=== PATIENT | male | born 1950 | race Caucasian/White ===

== ENCOUNTER → 2017-07-07 | Outpatient (CLI) | payer OTHER | LOC: FCPNEURO 23:30 | PROVIDERS: ATTEND Student in an Organized Health Care Education/Training Program | DX: G47.33 Obstructive sleep apnea (adult) (pediatric) (principal); G47.52 REM sleep behavior disorder ==

== ENCOUNTER 2018-05-22 06:09 | Day surgery (SDC) | payer OTHER ==
[2018-05-22] MEDS ORDERED: ASPIRIN EC 325 MG TAB PO ONE ×2 (06:15→06:32)
[2018-05-22] MEDS ORDERED: FAMOTIDINE 20 MG TAB PO ONE (06:15)
[2018-05-22] MEDS ORDERED: DIAZEPAM 5 MG TAB PO ONE (06:15)
[2018-05-22] MEDS ORDERED: NS 1,000 ML IV ONE (06:15)
[2018-05-22] MEDS ORDERED: diphenhydrAMINE 25 MG CAP PO ONE ×2 (06:15→06:32)
[2018-05-22] MEDS ORDERED: DIAZEPAM 5 MG TAB ONE (06:32)
[2018-05-22] MEDS ORDERED: FAMOTIDINE 20 MG TAB ONE (06:32)
[2018-05-22 06:50] LABS: PLATELET COUNT 203 10^3/uL (150-400)
[2018-05-22 06:58] LABS: INR 1.12 (0.83-1.16)
[2018-05-22] MEDS ORDERED: MIDAZOLAM 2 MG/2 ML VIAL ONE (07:13)
[2018-05-22] MEDS ORDERED: fentaNYL 100 MCG/2 ML INJ ONE (07:13)
[2018-05-22] MEDS ORDERED: LIDOCAINE 1% 300 MG/30 ML SDV ONE (07:13)
[2018-05-22] MEDS ORDERED: IOPAMIDOL (ISOVUE-370) 150 ML BTL IV ONE (07:14)
--- NOTE | 2018-05-22 07:22 | PDHPUP ---
History & Physical Update H&P update statement: This history and physical update is based on an assessment of the patient which was completed after admission or registration (within 24 hours), but prior to the surgery/procedure. H&P update: H&P reviewed & patient examined, no change in patient's condition since H&P completed
--- NOTE | 2018-05-22 07:22 | PDPROPOC ---
Sedation Plan of Care Sedation Plan of Care: mental status noted, patient educated of risks, benefits , alternatives, patient can tolerate sedation ASA Classification: ASA 2 Planned drugs: fentanyl, midazolam Mallampati Score: Class 2 Mallampati Reference Image: Patient passed 3-3-2 rule?: Yes
[2018-05-22] MEDS ORDERED: HYDROCODONE/APAP 5/325 TAB PO PRN (07:54)
[2018-05-22] MEDS ORDERED: ONDANSETRON 4 MG/2 ML VIAL IVP PRN (07:54)
[2018-05-22] MEDS ORDERED: NITROGLYCERIN 0.4 MG BTL SL PRN (07:54)
[2018-05-22] MEDS ORDERED: ATROPINE SULFATE 1 MG/10 ML SYR IVP PRN (07:54)
[2018-05-22] MEDS ORDERED: OXYCODONE/APAP 5/325 TAB PO PRN (07:54)
--- NOTE | 2018-05-22 08:27 | CPIP ---
[f rep st] INVASIVE CARDIAC PROCEDURE DATE OF PROCEDURE: 05/22/2018 INDICATIONS FOR PROCEDURE: Preoperative for AVR. PROCEDURE: 1. Nonselective right groin sheathogram. 2. 7-Nauruan sheath in the right common femoral vein. 3. Right heart catheterization with [place] catheter. 4. Bilateral coronary angiography. 5. Right groin closure with a 6-Nauruan Angio-Seal. HISTORY: Briefly, this is a 68-year-old male with history of known severe symptomatic aortic stenosi s. The patient has been evaluated as an outpatient and deemed to be a low risk candidate for open AV R. The patient was consented for right and left heart catheterization in anticipation for open AVR. DESCRIPTION OF PROCEDURE: After informed consent, the patient was brought to [facility] where the right shanna in was prepped and draped in sterile fashion. Using lidocaine, a short 6-Nauruan sheath in the right femoral artery verified angiographically, a 7-Nauruan sheath in the right common femoral vein. [place] catheter was advanced. Wedge pressure was mean of 11, A-wave 14, V-wave 13. PA pressure systoli c 32, diastolic 17, mean of 22. RV pressure systolic 37, diastolic 6, end of 7, RA pressure mean of 7, A-wave 9, V-wave 7. Cardiac output was measured to be 6.4 by Gracie with a cardiac index of 2.9. A O sat was 93%. PA sat was 75%. [place] catheter was then removed. A JL4 catheter was advanced to the left coronary artery. Images of the left coronary artery revealed short left main. Left circum flex artery was small but gave off a marginal 1 artery which was healthy and free of disease. Interm ittent AV groove circ was healthy and free of disease. There was a stent in the proximal LAD which h ad minimal in-stent restenosis. The LAD distal appeared to be widely patent. There was a diagonal a rtery coming off the midbody of the LAD, which was widely patent. After these images were obtained, the JL4 catheter was removed. A JR4 catheter was advanced to the right coronary artery. Images of t he right coronary artery revealed normal ostial RCA. There was 20% to 30% plaque disease in the prox imal RCA. RPD and RPLS appeared to be widely patent and free of disease. At this time, the JR4 cath eter was removed over the 0.035 wire. Right groin was closed with a 6-Nauruan Angio-Seal. The 7-Fren ch sheath was closed with manual pressure. Patient tolerated the procedure well with no complication s. IMPRESSION: 1. Patent stent in the ostial proximal left anterior descending. 2. Normal left circumflex artery. 3. Mild noncritical disease in the proximal right coronary artery. 4. Normal pulmonic pressures. 5. Normal cardiac output. PLAN: The patient will be discharged home this morning. He will follow up in the office with Dr. Manisha Gaytan in 24 hours for discussion of open AVR. /[id number]/MODL
--- NOTE | 2018-05-22 19:39 | CPEKG ---
Test Reason : OPEN Blood Pressure : / mmHG Vent. Rate : 059 BPM Atrial Rate : 059 BPM P-R Int : 239 ms QRS Dur : 085 ms QT Int : 445 ms P-R-T Axes : 017 046 104 degrees QTc Int : 441 ms Sinus rhythm 1 degree av block Nonspecific T abnormalities, lateral leads Confirmed by Patrick Melchor ([id number]) on 05/22/2018 7:38:56 PM Referred By: Vitaliy Chambers Confirmed By:Patrick Melchor
== END 2018-05-22 12:30 | disposition home or self-care (01) ==
LOC: FCATH 06:09
PROVIDERS: ATTEND Internal Medicine Cardiovascular Disease
PROC: B2111ZZ Fluoroscopy of Multiple Coronary Arteries using Low Osmolar Contrast (ICD-10-PCS; principal; 2018-05-22)
PROC: 4A033BC Measurement of Arterial Pressure, Coronary, Percutaneous Approach (ICD-10-PCS; principal; 2018-05-22)
PROC: B2161ZZ Fluoroscopy of Right and Left Heart using Low Osmolar Contrast (ICD-10-PCS; principal; 2018-05-22)
PROC: 4A023N6 Measurement of Cardiac Sampling and Pressure, Right Heart, Percutaneous Approach (ICD-10-PCS; principal; 2018-05-22)
DX: I35.0 Nonrheumatic aortic (valve) stenosis (principal); I25.10 Atherosclerotic heart disease of native coronary artery without angina pectoris; Z95.5 Presence of coronary angioplasty implant and graft; E78.00 Pure hypercholesterolemia, unspecified; I10 Essential (primary) hypertension
CPT/HCPCS: C1760; J1644; J2250; J3010; Q9967

== ENCOUNTER → 2018-05-30 | Outpatient (CLI) | payer OTHER | LOC: FIMAGING 11:08 | PROVIDERS: ATTEND Thoracic Surgery (Cardiothoracic Vascular Surgery) | DX: I35.0 Nonrheumatic aortic (valve) stenosis (principal); K46.9 Unspecified abdominal hernia without obstruction or gangrene ==

== ENCOUNTER 2018-06-03 09:25 | Inpatient (IN) | payer OTHER ==
[~2018-06-03 09:25] MED LIST: ADENOSINE 6 MG/2 ML VIAL ONE; ALBUMIN 5% 250 ML BOTTLE IV ONE; AMINOCAPROIC ACID 5 GM/20 ML VIAL ONE; AMIODARONE HCL 150 MG/3 ML VIAL ONE; CALCIUM CHLORIDE 1 GM/10 ML INJ ONE; CARDIOPLEGIC SOLUTION 1,052.8 ML PF ONE; CITRATE DEXTROSE SOLN 500 ML BAG ONE; DOBUTamine/DEXTROSE 250 ML IV ONE; DOPamine/DEXTROSE 400 MG/250 ML BAG IV ONE; HEPARIN 10,000 UNIT/10 ML MDV (1,000 UNIT/ML) ONE; INSULIN REGULAR HUMAN 100 UNIT in NS 100 ML IV ONE; LIDOCAINE 2% 100 MG/5 ML SYR ONE; MAGNESIUM SULFATE 1 GM/2 ML VIAL ONE; MANNITOL 25% 12.5 GM/50 ML VIAL IVP ONE; MILRINONE/DEXTROSE/100 ML BAG IV ONE; NA BICARBONATE 50 MEQ/50 ML VIAL ONE; NITROGLYCERIN/D5W 50 MG/250 ML BOTTLE IV ONE; NOREPINEPHRINE BITARTRATE 16 MG in NS 250 ML IV ONE; PHENYLEPHRINE HCL 50 MG in NS 250 ML IV ONE; PROTAMINE SULFATE 50 MG/5 ML VIAL IVP ONE; SODIUM BICARBONATE 50 MEQ/50 ML SYR ONE; methylPREDNISolone SOD SUCC 1 GM/8 ML VIAL ONE; niCARdipine/NACL/200 ML BAG IV ONE
[2018-06-03] MEDS ORDERED: CITRATE DEXTROSE SOLN 500 ML BAG MISC ONE (09:35)
[2018-06-03] MEDS ORDERED: AMINOCAPROIC ACID 5 GM/20 ML VIAL IV ONE (09:35)
[2018-06-03] MEDS ORDERED: LIDOCAINE 1% 2 ML INJ ID PRN (09:35)
[2018-06-03] MEDS ORDERED: ceFAZolin 2 GM/DEXTROSE 100 ML IV ONE (09:35)
[2018-06-03] MEDS ORDERED: LR 1,000 ML IV ONE (09:41)
--- NOTE | 2018-06-03 10:01 | PDHPUP ---
History & Physical Update H&P update statement: This history and physical update is based on an assessment of the patient which was completed after admission or registration (within 24 hours), but prior to the surgery/procedure. No changes from previous History and Physical Risks, benefits alternatives have been reviewed with patient and he has agreed to proceed. H&P update: H&P reviewed & patient examined, no change in patient's condition since H&P completed
[2018-06-03] MEDS ORDERED: MIDAZOLAM 2 MG/2 ML VIAL IVP ONE (10:02)
--- NOTE | 2018-06-03 10:02 | PDANEPAE ---
ANE History of Present Illness 68 yo for avr ANE Past Medical History - Cardiovascular History Hx Hypertension: No Hx Arrhythmias: No Hx Chest Pain: No Hx Coronary Artery / Peripheral Vascular Disease: Yes Hx CHF / Valvular Disease: Yes Hx Palpitations: No - Pulmonary History Hx COPD: No Hx Asthma/Reactive Airway Disease: No Hx Recent Upper Respiratory Infection: No Hx Oxygen in Use at Home: No Hx Sleep Apnea: Yes Sleep Apnea Screening Result - Last Documented: Positive Pulmonary History Comment: RUTH RECENTLY STARTED USING C-PAP - Neurologic History Hx Cerebrovascular Accident: No Hx Seizures: No Hx Dementia: No - Endocrine History Hx Diabetes: No - Renal History Hx Renal Disorders: No - Liver History Hx Hepatic Disorders: No - Neurological & Psychiatric Hx Hx Neurological and Psychiatric Disorders: Yes Neurological / Psychiatric History Comment: ADD - Cancer History Hx Cancer: Yes Cancer History Comment: MOH'S NOSE - Congenital Disorder History Hx Congenital Disorders: No - GI History Hx Gastrointestinal Disorders: Yes Gastrointestinal History Comment: HIATAL HERNIA. GERD - Chronic Pain History Chronic Pain: No - Surgical History Prior Surgeries: EGD ANE Review of Systems Review of Systems: - Exercise capacity METS (RN): 4 METS ANE Patient History - Allergies Allergies/Adverse Reactions: Penicillins Allergy (Unknown, Verified 05/16/18 14:36) Family history - Home Medications Home medications: home medication list seen and reviewed Home Medications: Allopurinol [Allopurinol 100 MG (*)] 100 mg PO DAILY 05/16/18 [Last Taken ] Allopurinol [Allopurinol 300 MG (RX)] 300 mg PO DAILY 05/16/18 [Last Taken 05/21] Androgel 1.62% 1 chelle TP DAILY 05/16/18 [Last Taken Unknown] Citalopram Hydrobromide [Citalopram HBr] 20 mg PO DAILY 05/16/18 [Last Taken Unknown] Herbals/Supplements -Info Only 1 ea PO DAILY 05/16/18 [Last Taken 05/21/18] Metoprolol Tartrate [Lopressor 50 mg (*)] 50 mg PO BID 05/16/18 [Last Taken 11/29] Omeprazole 40 mg PO DAILY 05/16/18 [Last Taken 05/21/18] Rosuvastatin Calcium [Crestor 40mg (*)] 40 mg PO DAILY 05/16/18 [Last Taken 11/29] clonazePAM [Klonopin (*)] 0.25 mg PO HS 05/16/18 [Last Taken 05/21/18] valACYclovir [Valtrex (*)] 500 mg PO DAILY 05/16/18 [Last Taken 05/21/18] - NPO status NPO Status: no food or drink >8 hours - Anes Hx Anes Hx: no prior problems - Smoking Hx Smoking Status: Never smoked - Family Anes Hx Family Hx Anesthesia Complications: NONE ANE Labs/Vital Signs - Vital Signs Height: 5 ft 10 in Weight: 99.79 kg ANE Physical Exam - Airway Neck exam: FROM Mallampati Score: Class 2 Mouth exam: normal dental/mouth exam - Pulmonary Pulmonary: no respiratory distress - Cardiovascular Cardiovascular: regular rate and rhythym - ASA Status ASA Status: IV ANE Anesthesia Plan Anesthesia Plan: general endotracheal anesthesia Lines/Monitors: arterial line, central line, JENNIFER
[2018-06-03] MEDS ORDERED: REMIFENTANIL HCL 1 MG VIAL ONE (10:06)
[2018-06-03] MEDS ORDERED: fentaNYL 100 MCG/2 ML INJ ONE (10:06)
[2018-06-03] MEDS ORDERED: PROPOFOL/EMULSION 500 MG/50 ML BOTTLE IV ONE (10:07)
[2018-06-03] MEDS ORDERED: ROCURONIUM 100 MG/10 ML VIAL ONE (10:07)
[2018-06-03] MEDS ORDERED: DEXAMETHASONE 4 MG/ML VIAL ONE (10:07)
[2018-06-03] MEDS ORDERED: MIDAZOLAM 2 MG/2 ML VIAL ONE (10:13)
[2018-06-03] MEDS ORDERED: DEXMEDETOMIDINE HCL 400 MCG in NS 100 ML IV SCH (10:30)
[2018-06-03] MEDS: ceFAZolin 1 GM VIAL ONE ×2 (13:17→13:20)
[2018-06-03] MEDS ORDERED: PROPOFOL 200 MG/20 ML VIAL ONE (13:28)
--- NOTE | 2018-06-03 14:16 | POSTOPPROG ---
Post Op Note Date of Operation: 06/03/18 Surgeon: Brady Doll Assistant: Darling Colindres PA-C Anesthesiologist: Karen Anesthesia: GET(General Endotracheal) Pre-op Diagnosis: severe Post-op Diagnosis: same Procedure: AVR #21 Diaz Intuity Elite bioprosthesis Inf/Abcess present in the surg proc area at time of surgery?: No EBL: n/a Bowel Protocol: N/A Clean Closure Performed: Yes Drains: Other (36 Fr mediastinal and rt pleural chest tubes y-d to pleurovac Percutaneous ventricular wires)
[2018-06-03] MEDS ORDERED: SODIUM CL NASAL 45 ML BTL EACHNARE PRN (14:18)
[2018-06-03] MEDS ORDERED: METOCLOPRAMIDE 10 MG/2 ML VIAL IVP PRN (14:18)
[2018-06-03] MEDS ORDERED: POTASSIUM Cl (KCl) 50 ML IV PRN (14:18)
[2018-06-03] MEDS ORDERED: LACTULOSE 20 GM/30 ML UDCUP PO PRN (14:18)
[2018-06-03] MEDS ORDERED: ACETAMINOPHEN 650 MG SUPP PR PRN (14:18)
[2018-06-03] MEDS ORDERED: ONDANSETRON DISINTEGRATING 4 MG TAB PO PRN (14:18)
[2018-06-03] MEDS ORDERED: fentaNYL 100 MCG/2 ML INJ IVP PRN (14:18)
[2018-06-03] MEDS ORDERED: CEPACOL LOZENGE PO PRN (14:18)
[2018-06-03] MEDS ORDERED: BISACODYL 10 MG SUPP PR PRN (14:18)
[2018-06-03] MEDS ORDERED: D50W 25 GM/50 ML SYR IVP PRN (14:18)
[2018-06-03] MEDS ORDERED: MEPERIDINE 25 MG/0.5 ML AMP IVP PRN (14:18)
[2018-06-03] MEDS ORDERED: ONDANSETRON 4 MG/2 ML VIAL IVP PRN (14:18)
[2018-06-03] MEDS ORDERED: MAGNESIUM HYDROXIDE 30 ML UDCUP PO PRN (14:18)
[2018-06-03] MEDS ORDERED: PANTOPRAZOLE SODIUM 40 MG VIAL IVP ONE (14:18)
[2018-06-03] MEDS ORDERED: niCARdipine/NACL/200 ML BAG IV ONE (14:23)
[2018-06-03] MEDS ORDERED: INSULIN REGULAR HUMAN 100 UNIT in NS 100 ML IV SCH (14:30)
[2018-06-03] MEDS ORDERED: NS 1,000 ML IV SCH (14:30)
--- NOTE | 2018-06-03 14:38 | PDMN ---
Medical Necessity Medical necessity: MCG: S 290 cardiac valve replacement or repair 5 days INPT only OP: AVR --. AUTH#[id number] FOR CPT 57353 INPT
--- NOTE | 2018-06-03 15:07 | PDCONSULT ---
Ict Security Specialist Note: ASSESSMENT 68-year-old male with severe status post bioprosthetic aortic valve repair # severe aortic stenosis status post bioprosthetic valve repair 05/03/2018 # GERD complicated by Hallman's esophagus # gout # obesity # REM sleep behavior disorder # coronary disease status post TIEN to LAD in 1999 # COPD # postoperative respiratory failure. V/Q mismatching with shunt physiology worsened by underlying obesity and lung disease PLAN # lung protective ventilation, as hemodynamics improve will wean to extubate # given underlying RUTH, obesity, and COPD, he is high at risk for respiratory complications # aggressive pulmonary toilet # patients to use home CPAP with bleed in oxygen once extubated # hold gout medication # hold low-dose clonazepam until extubated clinically improved (REM sleep disorder) # Feeding - NPO # ASA 81 # Analgesia APAP, fentanyl # Sedation Precedex # Thromboprophylaxis - SQ hep # Head of bed elevated # Ulcer prophylaxis -PPI for GERD # Glucose SSI # Skin no skin breakdown # Delirium - delirium precautions Patient is critical ill due to life threatening organ dysfunction and is at high risk for decompensation and . Total critical care time, excluding procedures: 55 min cc Shortness of breath HPI As X by Dr. Doll of cardiothoracic surgery to evaluate this patient for ICU care. Estiven is a very pleasant 68-year-old male. Initially presented primary care provider with significant dyspnea on exertion and was found to have severe aortic stenosis initially diagnosed with stress echocardiogram. Due to interval worsening of symptoms he was referred to cardiology and cardiothoracic surgery and deemed eligible for valve repair. He also has obstructive sleep apnea as well as insomnia and REM sleep behavior disorder as father cause sleep apnea is to. Per report he has excellent adherence and improvement with CPAP. Medication A medication Reconciliation was performed see EMR full details Allergies Penicillin Past medical history Severe extent notices, coronary disease, GERD complicated by Hallman's esophagus , insomnia, REM behavior sleep disorder, obesity, obstructive sleep apnea Social history Lives with family in [facility] Family history No history of severe aortic stenosis Review of systems Unable to be obtained secondary to pressures mental status Physical exam Afebrile, sinus 70s, map 75, respirations 16 96% on 60% FiO2 peep of 5 on ventilator GEN: Intubated sedated lying in bed NEURO: Sedated, no focal deficits ET tube in place HEENT: ET tube in place, pupils equal round reactive to light NECK: supple, trachea midline CHEST midline sternotomy scar clean dry and intact mediastinal drains in place CVS: Non tachycardic CVP not elevated PULM: Mechanical breath sounds bilaterally ABD: Protuberant, NT, ND, NABS EXT: no swelling, no cyanosis, full ROM SKIN: warm, dry, intact, no rash PSYCH sedated Labs Reviewed Imaging Reviewed
[2018-06-03 15:14] LABS: INR 1.44 (0.83-1.16); PROTIME(PATIENT) 16.9 SEC (12.0-15.0)
[2018-06-03] MEDS: KETOROLAC 15 MG/1 ML SDV IVP SCH ×2 (15:18→17:22)
[2018-06-03] MEDS: ALBUMIN 5% 250 ML IV PRN ×2 (16:00→17:36)
[2018-06-03] MEDS: MUPIROCIN 2% 22 GM OINT NS SCH ×2 (16:14→20:33)
[2018-06-03] MEDS: ceFAZolin 2 GM/DEXTROSE 100 ML IV SCH (17:35)
[2018-06-03] MEDS: POLYETHYLENE GLYCOL 3350 17 GM PKT PO PRN ×2 (19:24→20:33)
[2018-06-03] MEDS ORDERED: ceFAZolin 2 GM/DEXTROSE 100 ML IV SCH (22:00)
[2018-06-04] MEDS: KETOROLAC 15 MG/1 ML SDV IVP SCH (00:13)
[2018-06-04] MEDS: ACETAMINOPHEN 325 MG TAB PO PRN ×2 (00:56→05:02)
[2018-06-04] MEDS: HYDROCODONE/APAP 5/325 TAB PO PRN ×4 (00:56→15:21)
[2018-06-04] MEDS: ceFAZolin 2 GM/DEXTROSE 100 ML IV SCH ×3 (01:00→17:41)
[2018-06-04 04:20] LABS: PLATELET COUNT 95 10^3/uL (150-400)
[2018-06-04 04:23] LABS: INR 1.43 (0.83-1.16); PROTIME(PATIENT) 16.8 SEC (12.0-15.0)
--- NOTE | 2018-06-04 07:15 | SOAPPROG ---
CALE Progress Note Assessment/Plan: POD #1: AVR with #21 Diaz Intuity Elite bioprosthesis Severe s/p AVR with bioprosthesis - Plan for AL/Pal[place]/FC to be removed - CTs/pacing wires to remain - Thromboprophylaxis with Coumadin, INR goal 2-3, duration 2 months - will start as per Dr. Manisha Gaytan, likely when tubes and wires are out - Beta-dave for secondary prevention - ASA for Thromboprophylaxis Acute post-op blood loss anemia - Stable without the need for transfusions DVT prophylaxis - SCDs Disposition - Likely PCU later today Subjective: Pain well-controlled. Denies SOB. Objective: Vital Signs Temp Pulse Resp BP Pulse Ox 36.6 C 63 20 122/60 H 93 06/04/18 06:00 06/04/18 07:00 06/04/18 07:00 06/04/18 07:00 06/04/18 07:00 Laboratory Results 06/04/18 04:00 06/04/18 04:00 06/03/18 06/04/18 06/05/18 05:59 05:59 05:59 Intake Total 3323 Output Total 1540 Balance 1783 PT 16.8 SEC (12.0-15.0) H 06/04/18 04:00 INR 1.43 (0.83-1.16) H 06/04/18 04:00 Physical Exam - Physical Exam General Appearance: WD/WN, alert, no apparent distress EENT: No scleral icterus (R), No scleral icterus (L) Neck: normal inspection Respiratory: No respiratory distress Cardiac/Chest: regular rate, rhythm Abdomen: non-tender, soft, No distended Skin: normal color, warm/dry Extremities: No pedal edema Neuro/Psych: no motor/sensory deficits, alert, normal mood/affect, oriented x 3 ICD10 Worksheet Patient Problems: Problems Problem Status Onset S/P aortic valve replacement with bioprosthetic valve Acute ~06/03/18 Severe aortic valve stenosis Acute RUTH on CPAP Chronic Obesity (BMI 30.0-34.9) Chronic
[2018-06-04] MEDS: CITALOPRAM 20 MG TAB PO SCH (09:05)
[2018-06-04] MEDS: PANTOPRAZOLE SODIUM 40 MG TAB PO SCH (09:05)
[2018-06-04] MEDS: ASPIRIN 81 MG CHEWABLE TAB PO SCH (09:05)
[2018-06-04] MEDS: valACYclovir 500 MG TAB PO SCH (09:05)
[2018-06-04] MEDS: MUPIROCIN 2% 22 GM OINT NS SCH ×2 (09:15→20:20)
[2018-06-04] MEDS ORDERED: OXYCODONE/APAP 5/325 TAB PO PRN (09:41)
--- NOTE | 2018-06-04 13:54 | PDINTPN ---
Staff Occupational Therapist Progress Note Assessment/Plan: ASSESSMENT 68-year-old male with severe status post bioprosthetic aortic valve repair # severe aortic stenosis status post bioprosthetic valve repair 05/03/2018 # GERD complicated by Hallman's esophagus # RUTH dependent on CPAP # gout # obesity # REM sleep behavior disorder # coronary disease status post TIEN to LAD in 1999 # COPD # postoperative respiratory failure. V/Q mismatching with shunt physiology worsened by underlying obesity and lung disease. improving PLAN # aggressive pulmonary toilet # wean supple oxygen as tolerated # given underlying RUTH, obesity, and COPD, he is higher at risk for respiratory complications # patients to use home CPAP with bleed in oxygen # hold low-dose clonazepam until clinically improved (REM sleep disorder) # Feeding -cardiac diet # ASA 81 # Analgesia APAP, Oxy # Sedation none # Thromboprophylaxis - Coumadin initiated # Head of bed elevated # Ulcer prophylaxis -PPI for GERD # Glucose SSI # Skin no skin breakdown # Delirium - delirium precautions # agree with downgrading to PCU Subjective: Extubated without difficulty, mild chest pain but doing well. Did not use CPAP overnight and states he had unrefreshing sleep. Weaned off pressors. Plans for support devices to be removed. No nausea, vomiting still with some supplemental oxygen requirement Objective: Vital Signs Temp Pulse Resp BP Pulse Ox 36.4 C 76 20 112/52 L 92 06/04/18 08:00 06/04/18 10:00 06/04/18 10:00 06/04/18 10:00 06/04/18 10:00 Laboratory Results 06/04/18 04:00 06/04/18 04:00 06/03/18 06/04/18 06/05/18 05:59 05:59 05:59 Intake Total 3323 Output Total 1540 300 Balance 1783 -300 PT 16.8 SEC (12.0-15.0) H 06/04/18 04:00 INR 1.43 (0.83-1.16) H 06/04/18 04:00 Physical Exam - Physical Exam General Appearance: alert, no apparent distress EENT: PERRL/EOMI, normal ENT inspection Neck: non-tender, full range of motion, other (Right IJ Cordis with Minerva in place) Respiratory: lungs clear, normal breath sounds, No respiratory distress Cardiac/Chest: normal peripheral pulses, regular rate, rhythm, other (Midline sternotomy bandage clean dry and intact mediastinal drains in place) Abdomen: normal bowel sounds, non-tender, soft Skin: normal color, warm/dry Neuro/Psych: no motor/sensory deficits, alert, normal mood/affect, oriented x 3 ICD10 Worksheet Patient Problems: Problems Problem Status Onset S/P aortic valve replacement with bioprosthetic valve Acute ~06/03/18 Severe aortic valve stenosis Acute RUTH on CPAP Chronic Obesity (BMI 30.0-34.9) Chronic
[2018-06-04] MEDS ORDERED: ASPIRIN 81 MG CHEWABLE TAB TUBE PRN (14:18)
[2018-06-04] MEDS: METOPROLOL TARTRATE 25 MG TAB PO SCH (20:17)
[2018-06-04] MEDS: clonazePAM 0.5 MG TAB PO SCH (20:19)
[2018-06-04] MEDS: oxyCODONE IR 5 MG TAB PO PRN (22:02)
[2018-06-05] MEDS: ceFAZolin 2 GM/DEXTROSE 100 ML IV SCH (01:44)
[2018-06-05] MEDS: oxyCODONE IR 5 MG TAB PO PRN ×3 (05:06→20:07)
[2018-06-05 05:23] LABS: INR 1.26 (0.83-1.16); PROTIME(PATIENT) 15.3 SEC (12.0-15.0)
--- NOTE | 2018-06-05 08:01 | SOAPPROG ---
SOAP Progress Note Assessment/Plan: Assessment: POD#2 AVR with #21 Diaz Intuity Elite bioprosthesis Severe - s/p rapid deployment tissue AVR. CTs out. Antithrombotic prophylaxis with Coumadin x 2 months, target INR 2.3. AF prophylaxis with BB as tolerated. Postoperative atrial fibrillation - Onset this am. No RVR or hypotension. Amio started. Adjunctive BB as allowed by BP. Antithrombotic prophylaxis as per AVR. Acute expected blood loss anemia - Stable. No transfusions needed. VTE prophylaxis with SCDs and coumadin. Plan: Cont metoprolol tartrate 12.5 mg BID. IV amio as per protocol. 150 mg bolus prn sustained HR > 120. Start diuresis. Start coumadin. Intensify pulm toilet. Inc activity as tolerated. Dispo - Anticipate home without services next 2-3 days. 06/05/18 07:57 Subjective: Doing ok. Aware of irreg HR. No malaise or dyspnea. Improving appetite and mobility. Feels puffy. Objective: Vital Signs Temp Pulse Resp BP Pulse Ox 36.7 C 83 20 114/65 89 L 06/05/18 07:50 06/05/18 07:50 06/05/18 07:50 06/05/18 07:50 06/05/18 07:50 Laboratory Results 06/05/18 04:45 06/05/18 04:45 06/04/18 06/05/18 06/06/18 05:59 05:59 05:59 Intake Total 3323 1035 Output Total 1540 1425 Balance 1783 -390 PT 15.3 SEC (12.0-15.0) H 06/05/18 04:45 INR 1.26 (0.83-1.16) H 06/05/18 04:45 Onset of AF 90s this am. SBP > 100. 4 lpm suppl O2 req. 8 kg positive fluid balance. Renal fx ok. INR near normal. Platelets back over 100. Physical Exam - Physical Exam General Appearance: alert, no apparent distress Respiratory: decreased breath sounds (bases), other (chest tube dressings CDI) Cardiac/Chest: irregularly irregular, other (Vwires intact) Abdomen: non-tender, soft Skin: warm/dry (anteriorly) Extremities: swelling (1+ gen) ICD10 Worksheet Patient Problems: Problems Problem Status Onset S/P aortic valve replacement with bioprosthetic valve Acute ~06/03/18 Severe aortic valve stenosis Acute RUTH on CPAP Chronic Obesity (BMI 30.0-34.9) Chronic
[2018-06-05] MEDS: FUROSEMIDE 40 MG TAB PO SCH (08:35)
[2018-06-05] MEDS: HYDROCODONE/APAP 5/325 TAB PO PRN ×2 (08:35→15:41)
[2018-06-05] MEDS: POTASSIUM CL 20 MEQ TAB PO SCH (08:36)
[2018-06-05] MEDS ORDERED: AMIODARONE HCL 100 ML IV PRN (08:57)
[2018-06-05] MEDS ORDERED: AMIODARONE HCL 200 ML IV ONE (08:57)
[2018-06-05] MEDS: SENNOSIDES/DOCUSATE SODIUM TAB PO SCH ×2 (10:02→20:07)
[2018-06-05] MEDS: valACYclovir 500 MG TAB PO SCH (10:02)
[2018-06-05] MEDS: ASPIRIN 81 MG CHEWABLE TAB PO SCH (10:02)
[2018-06-05] MEDS: ALLOPURINOL 100 MG TAB PO SCH (10:02)
[2018-06-05] MEDS: CITALOPRAM 20 MG TAB PO SCH (10:03)
[2018-06-05] MEDS: PANTOPRAZOLE SODIUM 40 MG TAB PO SCH (10:03)
[2018-06-05] MEDS: METOPROLOL TARTRATE 25 MG TAB PO SCH ×2 (10:03→20:08)
[2018-06-05] MEDS: ALLOPURINOL 300 MG TAB PO SCH (10:03)
--- NOTE | 2018-06-05 11:40 | GOP ---
[f rep st] OPERATIVE REPORT DATE OF OPERATION: 06/03/2018 SURGEON: Brady Doll MD PALLIATIVE CARE COORDINATOR: ROSEANNA Johns PREOPERATIVE DIAGNOSIS: Severe symptomatic aortic stenosis. POSTOPERATIVE DIAGNOSIS: Severe symptomatic aortic stenosis. PROCEDURE PERFORMED: Aortic valve replacement using a 21 mm Diaz Intuity bioprosthesis. FINDINGS: INDICATIONS: This gentleman has been experiencing increasing dyspnea and fatigue. He was found to h ave severe aortic stenosis. He is a low risk patient. He is recommended to undergo surgical valve r eplacement. DESCRIPTION OF PROCEDURE: Patient was taken to the operating room, placed on the operating table in supine position. After induction of general anesthesia and single-lumen endotracheal tube intubation , patient was prepped and draped sterilely. Standard median sternotomy performed and the patient was fully heparinized. He was cannulated with a Sarns 8.0 soft flow aortic cannula, as well as a dual stage venous right atrial cannula. Cardiopulm onary bypass was instituted. The cross-clamp was applied and the heart was arrested with 1 L of [place] solution. The aorta was opened. Tricuspid calcified valve was encountered. It was resected. The anulus was m eticulously debrided and it was sized to a 21 mm valve. The sutures were then placed at the sol of each of the leaflets and through the sewing ring of the Intuity valve. The valve was seated without difficulty and the balloon was expanded. The sutures were then secured in place with the Cor-knot d evice and the aorta was closed in 2 layers. The cross-clamp was removed and mediastinal and right pl eural chest tubes were placed, as well as 2 ventricular pacing wires. The patient was from bypass without difficulty and the post-pump transesophageal echo shows normally functioning bioprosthetic valve in aortic position, as well as preservation of left ventric ular function. Protamine was administered and the patient was decannulated. All the cannulation sit es were doubly secured with Prolene suture, and after hemostasis had been achieved, the heart was cov ered with pericardium and fat. The chest was closed with #6 stainless steel wire. The subcutaneous tissue and skin were closed with running Vicryl suture. The patient tolerated the procedure well. /[id number]/MODL
[2018-06-05] MEDS: MUPIROCIN 2% 22 GM OINT NS SCH ×2 (11:55→20:12)
--- NOTE | 2018-06-05 15:10 | ASMTCMCOM ---
CM Note CM Note Notes: 06/05/2018 Case Management Note Discussed with Darling Colindres after pt transferred from ICU to PCU. Post op day 2. Anticipating d/c in 2-3 days. Therapies recommending home. Pt has supportive family. Case Management d/c poc: Home with cardiac outpatient rehab. Case Management available if needs change. Date Signed: 06/05/2018 03:09 PM Electronically Signed By:Jenna Dumas RN
[2018-06-05] MEDS: WARFARIN SODIUM 5 MG TAB PO SCH (15:41)
[2018-06-05] MEDS ORDERED: AMIODARONE HCL 540 MG in D5W 300 ML IV ONE (16:00)
[2018-06-05] MEDS: clonazePAM 0.5 MG TAB PO SCH (20:09)
[2018-06-06] MEDS: HYDROCODONE/APAP 5/325 TAB PO PRN ×3 (00:49→17:12)
[2018-06-06] MEDS: oxyCODONE IR 5 MG TAB PO PRN ×4 (05:47→20:05)
[2018-06-06 06:06] LABS: INR 1.59 (0.83-1.16); PROTIME(PATIENT) 18.2 SEC (12.0-15.0)
--- NOTE | 2018-06-06 08:13 | SOAPPROG ---
SOAP Progress Note Assessment/Plan: Assessment: POD#3 AVR with #21 Diaz Intuity Elite bioprosthesis Severe - s/p rapid deployment tissue AVR. CTs out. Antithrombotic prophylaxis with Coumadin x 2 months, target INR 2.3. AF prophylaxis with BB as tolerated. Postoperative paroxysmal atrial fibrillation/flutter - Initial episode POD#2, promptly responsive to amio. No RVR or hypotension. Recurrent PAF with CVR since yest afternoon. Sufficient BP to inc BB. Antithrombotic prophylaxis as per AVR. Acute expected blood loss anemia - Stable. No transfusions needed. VTE prophylaxis with SCDs and coumadin. Plan: Inc metoprolol tartrate to 25 mg BID. [place] amio for recurrent/persistent RVR. Cont coumadin 5 mg daily. Intensify diuresis. Intensify pulm toilet. Consider removal Vwires later today. Baseline postop echo today. Dispo - Anticipate home without services next 1-2 days. 06/06/18 08:12 Subjective: Feels well. Improving mobility. Not much stamina or appetite. Looking forward to a shower. Objective: Vital Signs Temp Pulse Resp BP Pulse Ox 36.7 C 72 18 121/75 H 92 06/06/18 07:04 06/06/18 07:04 06/06/18 07:04 06/06/18 07:04 06/06/18 07:04 Laboratory Results 06/05/18 04:45 06/06/18 05:40 06/05/18 06/06/18 06/07/18 05:59 05:59 05:59 Intake Total 1035 1305 Output Total 1425 1250 Balance -390 55 PT 18.2 SEC (12.0-15.0) H 06/06/18 05:40 INR 1.59 (0.83-1.16) H 06/06/18 05:40 Intermittent PAF, mostly SR SBPs > 110 4 Lpm suppl O2 req. CXR-> mild pulm vasc congestion, small bilat pl eff with bibasilar atelectasis Balanced I/Os. +7 kg overall. Appropriate rise in INR. - Pending Discharge Pending Discharge Within 48 Hours: Yes Pending Discharge Date: 06/08/18 Pending Discharge Time: 11:00 Physical Exam - Physical Exam General Appearance: alert, no apparent distress Respiratory: decreased breath sounds (bases), other (chest tube dressings CDI) Cardiac/Chest: regular rate, rhythm, other (Sternotomy CDI. Vwire intact.) Abdomen: non-tender, soft Skin: warm/dry Extremities: swelling (1+ gen) ICD10 Worksheet Patient Problems: Problems Problem Status Onset S/P aortic valve replacement with bioprosthetic valve Acute ~06/03/18 Severe aortic valve stenosis Acute RUTH on CPAP Chronic Obesity (BMI 30.0-34.9) Chronic
[2018-06-06] MEDS: CITALOPRAM 20 MG TAB PO SCH (08:48)
[2018-06-06] MEDS: ALLOPURINOL 100 MG TAB PO SCH (08:48)
[2018-06-06] MEDS: SENNOSIDES/DOCUSATE SODIUM TAB PO SCH ×2 (08:48→20:07)
[2018-06-06] MEDS: FUROSEMIDE 40 MG TAB PO SCH ×2 (08:48→15:49)
[2018-06-06] MEDS: ALLOPURINOL 300 MG TAB PO SCH (08:48)
[2018-06-06] MEDS: ASPIRIN 81 MG CHEWABLE TAB PO SCH (08:48)
[2018-06-06] MEDS: PANTOPRAZOLE SODIUM 40 MG TAB PO SCH (08:48)
[2018-06-06] MEDS: valACYclovir 500 MG TAB PO SCH (08:48)
[2018-06-06] MEDS: POTASSIUM CL 20 MEQ TAB PO SCH ×3 (08:49→20:06)
[2018-06-06] MEDS: METOPROLOL TARTRATE 25 MG TAB PO SCH ×2 (08:49→20:07)
[2018-06-06] MEDS ORDERED: AMIODARONE HCL 200 MG TAB PO SCH (09:00)
[2018-06-06] MEDS: WARFARIN SODIUM 5 MG TAB PO SCH (15:48)
--- NOTE | 2018-06-06 16:18 | ECHO ---
[email or web address] [address] Main: [phone] Echocardiography Examination Transthoracic Name: PHILIP YOUNG MR#: [id number] Study Date: 06/06/2018 Study Time: 08:22 AM Date of : 1950 Age: 68 year(s) Height: 177.8 cm (70 in.) Weight: 107.96 kg (238 lb.) BSA: 2.25 m2 Gender: Male Examination: Echo Contrast: Image Quality: Technically Difficult Rhythm: Heart Rate: BP: 121 mmHg/75 mmHg Indication: baseline post op echo, s/p AVR #21 Diaz Intuity bioprosthesis Procedure Staff Referring Physician: Machine Adjuster Leader: Birgit Rangel RDCS Reading Physician: Bhumika Valadez MD Requesting Provider: Ordering Physician: Darling Colindres Indication: baseline post op echo, s/p AVR #21 Diaz Intuity bioprosthesis Measurements Chambers AV/MV Label Value Normal Value Label Value Normal Value LVOTd 1.6 cm (1.9cm - 2.1cm) AV PGmax 38 mmHg LVOT VTI 23.2 cm (18cm - 22cm) AV PGmean 22 mmHg LVDd, 2D 4.2 cm (4.2cm - 5.9cm) AV Vmax 3.08 m/s LVDs, 2D 2.7 cm (2.1cm - 4cm) SADIE (VTI) 0.9 cm2 IVSd, 2D 1.2 cm (0.6cm - 1.1cm) MV E Vmax 1.57 m/s LVPWd, 2D 1.2 cm (0.6cm - 1cm) MV DT 176 ms LVEF, 2D 64 % (54% - 74%) MV PHT 0.06 s LVOT PGmean 2 mmHg MVA PHT 3.7 cm2 LVOT Vmean 0.73 m/s MV PHT 60 ms RVDd, 2D 3.3 cm (1.9cm - 3.8cm) TV/PV LADs, 2D 4.4 cm (3cm - 4cm) Label Value Normal Value RA Area 20.5 cm2 RA Pressure 5 mmHg Additional Vessels RVSP 49 mmHg Label Value Normal Value TR Pmax 44 mmHg AoAsc 2.5 cm TR Vmax 3.3 m/s AoRoot, 2D 2.5 cm (1.4cm - 2.6cm) PV PGmax 7 mmHg PV Vmax, Caliper 1.29 m/s (0.6m/s - 0.9m/s) Patient: PHILIP YOUNG Study Date: 06/06/2018 Page 1 of 2 08:22 AM Conclusions 1. Normal LV size and systolic function. Ejection fraction is 60-65%. Mild concentric LVH. Normal wall motion. 2. The right ventricle is normal in size and systolic function. 3. The left atrium is severely dilated. The right atrium is mildly dilated 4. Mild mitral regurgitation. 5. The aortic valve is a well-seated bioprosthesis. Mean gradient across the valve is 22 mm of mercury which is slightly elevated. No prosthesis regurgitation. 6. mild tricuspid regurgitation with estimated PA systolic pressure 49 mm of mercury. 7. Compared with previous study (JENNIFER 06/03/2018), aortic valve has been replaced Findings Left Ventricle: Left ventricle is normal in size. Normal global systolic left ventricular function. EF range is estimated at 60 % - 65 %. There is mild concentric left ventricular hypertrophy. There are no regional wall motion abnormalities. Unable to assess Diastolic Dysfunction due to mitral valve or annular interference. Right Ventricle: Normal size right ventricle. Right ventricular systolic function is normal. Left Atrium: The left atrium is severely dilated. Right Atrium: The right atrium is mildly dilated. Mitral Valve: Mitral valve appears structurally normal. Mild mitral regurgitation. No mitral valve stenosis. There is mitral annular calcification. Aortic Valve: The aortic valve is a bioprosthesis. The prosthetic aortic valve is normal. The orifice motion of the prosthetic aortic valve is normal. No prosthesis regurgitation. Aortic Valve Measurements AV PGmean is 22 mmHg. Tricuspid Valve: Tricuspid valve leaflets are structurally normal. Right Ventricular systolic pressure is measured at 49 mmHg. Pulmonary artery pressure moderately increased. Pulmonic Valve: Pulmonic leaflets are structurally normal. No significant pulmonic valve regurgitation is evident. Aorta: The aortic root size in 2D measures 2.5 cm. The ascending aorta measures 2.5 cm. Aorta Measurements AoRoot, 2D is 2.5 cm. Pericardium: A trivial pericardial effusion was identified. Exam Details Procedure Ordered: Echo Procedure Status: Routine study Image Quality: Technically Difficult Facility Location: Bedside (No Signature Object) Patient: PHILIP YOUNG Study Date: 06/06/2018 Page 2 of 2 08:22 AM [id number]
[2018-06-06] MEDS: clonazePAM 0.5 MG TAB PO SCH (20:28)
[2018-06-07] MEDS: oxyCODONE IR 5 MG TAB PO PRN ×3 (00:05→19:19)
[2018-06-07 06:46] LABS: INR 2.38 (0.83-1.16); PROTIME(PATIENT) 24.8 SEC (12.0-15.0)
[2018-06-07] MEDS: HYDROCODONE/APAP 5/325 TAB PO PRN ×2 (09:43→15:08)
[2018-06-07] MEDS: FUROSEMIDE 40 MG TAB PO SCH ×2 (09:45→15:08)
[2018-06-07] MEDS: PANTOPRAZOLE SODIUM 40 MG TAB PO SCH (09:46)
[2018-06-07] MEDS: SENNOSIDES/DOCUSATE SODIUM TAB PO SCH ×2 (09:46→20:50)
[2018-06-07] MEDS: METOPROLOL TARTRATE 25 MG TAB PO SCH ×2 (09:46→19:19)
[2018-06-07] MEDS: valACYclovir 500 MG TAB PO SCH (09:46)
[2018-06-07] MEDS: CITALOPRAM 20 MG TAB PO SCH (09:46)
[2018-06-07] MEDS: ALLOPURINOL 100 MG TAB PO SCH (09:46)
[2018-06-07] MEDS: ASPIRIN 81 MG CHEWABLE TAB PO SCH (09:46)
[2018-06-07] MEDS: ALLOPURINOL 300 MG TAB PO SCH (09:46)
[2018-06-07] MEDS: POTASSIUM CL 20 MEQ TAB PO SCH ×2 (09:47→20:51)
[2018-06-07] MEDS ORDERED: POTASSIUM CL 20 MEQ TAB PO ONE (10:45)
[2018-06-07] MEDS: POLYETHYLENE GLYCOL 3350 17 GM PKT PO PRN (13:07)
--- NOTE | 2018-06-07 13:43 | SOAPPROG ---
SOAP Progress Note Assessment/Plan: POD#4 AVR with #21 Diaz Intuity Elite bioprosthesis Severe - s/p rapid deployment tissue AVR. CTs out. Antithrombotic prophylaxis with Coumadin x 2 months, target INR 2.3. AF prophylaxis with BB as tolerated. Baseline postop echo performed yesterday showed EF 60-65%, mild MR, well seated AV with mean grad 22, no AI, mild TR, PASP 49mmHg. Postoperative paroxysmal atrial fibrillation/flutter - Initial episode POD#2, promptly responsive to amio. No RVR or hypotension. Recurrent PAF with CVR lasp pm, however currently in SR. On Metoprolol 25mg po BID. Antithrombotic prophylaxis as per AVR. Acute expected blood loss anemia - Stable. No transfusions needed. VTE prophylaxis with SCDs and coumadin. Plan: [place] amio for recurrent/persistent RVR. Cont coumadin 5 mg daily. Continue to diurese. Still no BM. Continue bowel protocol. Dispo - Anticipate home without services next 1-2 days. Subjective: Patient reports good pain control however still no BM. Amenable to suppository tomorrow if still no BM. Objective: Vital Signs Temp Pulse Resp BP Pulse Ox 36.6 C 84 10 L 155/96 H 97 06/07/18 11:03 06/07/18 11:03 06/07/18 11:03 06/07/18 11:03 06/07/18 11:03 Laboratory Results 06/07/18 06:20 06/07/18 06:20 06/06/18 06/07/18 06/08/18 05:59 05:59 05:59 Intake Total 1305 2510 Output Total 1250 2230 350 Balance 55 280 -350 PT 24.8 SEC (12.0-15.0) H 06/07/18 06:20 INR 2.38 (0.83-1.16) H 06/07/18 06:20 Physical Exam - Physical Exam General Appearance: WD/WN, alert, no apparent distress Neck: supple Respiratory: lungs clear, normal breath sounds, decreased breath sounds (bases) , other (No wheezing, rhonchi. ) Cardiac/Chest: regular rate, rhythm, other (+soft murmur. No rubs. Sternum stable, sternotomy c/d/i. ) Abdomen: normal bowel sounds, non-tender, soft Skin: normal color, warm/dry Extremities: other (Warm, +lower extremity edema. ) Neuro/Psych: alert, normal mood/affect, oriented x 3 ICD10 Worksheet Patient Problems: Problems Problem Status Onset Postoperative atrial fibrillation Acute S/P aortic valve replacement with bioprosthetic valve Acute ~06/03/18 Severe aortic valve stenosis Acute RUTH on CPAP Chronic Obesity (BMI 30.0-34.9) Chronic
[2018-06-07] MEDS: WARFARIN SODIUM 5 MG TAB PO SCH (15:08)
[2018-06-07] MEDS: clonazePAM 0.5 MG TAB PO SCH (20:51)
[2018-06-07] MEDS ORDERED: AMIODARONE HCL 100 ML IV ONE (21:30)
[2018-06-08] MEDS: HYDROCODONE/APAP 5/325 TAB PO PRN ×4 (00:11→20:08)
[2018-06-08 06:06] LABS: INR 2.23 (0.83-1.16); PROTIME(PATIENT) 23.6 SEC (12.0-15.0)
--- NOTE | 2018-06-08 08:35 | SOAPPROG ---
SOAP Progress Note Assessment/Plan: POD#5 AVR with #21 Diaz Intuity Elite bioprosthesis Severe - s/p rapid deployment tissue AVR. CTs out. Antithrombotic prophylaxis with Coumadin x 2 months, target INR 2.3. AF prophylaxis with Metoprolol. Baseline postop echo performed yesterday showed EF 60-65%, mild MR , well seated AV with mean grad 22, no AI, mild TR, PASP 49mmHg. Postoperative paroxysmal atrial fibrillation/flutter - Initial episode POD#2 and now in and out of Afib overnight and this am. Will initiate Amiodarone 200mg po BID. On Metoprolol 25mg po BID. Antithrombotic prophylaxis as per AVR. RUTH (uses CPAP at home)- Currently only on 3LNC. Patient's home CPAP machine is in room. Will resume CPAP at night. Acute expected blood loss anemia - Stable. No transfusions needed. VTE prophylaxis with SCDs and Coumadin. Plan: Start Amiodarone 200mg po BID. Cont Coumadin 5 mg daily. Continue to diurese. Anticipate home without services tomorrow. Subjective: Patient reports good pain control. No complaints, however patient is worried that walking causes him to go into Afib. Objective: Vital Signs Temp Pulse Resp BP Pulse Ox 36.6 C 86 19 117/81 H 95 06/08/18 07:18 06/08/18 07:18 06/08/18 07:18 06/08/18 07:18 06/08/18 07:18 Laboratory Results 06/07/18 06:20 06/08/18 05:26 06/07/18 06/08/18 06/09/18 05:59 05:59 05:59 Intake Total 2510 2280 Output Total 2230 2450 Balance 280 -170 PT 23.6 SEC (12.0-15.0) H 06/08/18 05:26 INR 2.23 (0.83-1.16) H 06/08/18 05:26 Physical Exam - Physical Exam General Appearance: WD/WN, alert, no apparent distress Neck: supple Respiratory: lungs clear, normal breath sounds, other (No wheezing, rhonchi. ) Cardiac/Chest: irregularly irregular, other (+ Soft murmur. No rubs. Sternum stable. Sternotomy c/d/i. ) Abdomen: normal bowel sounds, non-tender, soft Skin: normal color, warm/dry Extremities: other (Warm, minimal lower extremity edema. ) Neuro/Psych: alert, normal mood/affect, oriented x 3 ICD10 Worksheet Patient Problems: Problems Problem Status Onset Postoperative atrial fibrillation Acute S/P aortic valve replacement with bioprosthetic valve Acute ~06/03/18 Severe aortic valve stenosis Acute RUTH on CPAP Chronic Obesity (BMI 30.0-34.9) Chronic
[2018-06-08] MEDS: FUROSEMIDE 40 MG TAB PO SCH ×2 (08:50→15:57)
[2018-06-08] MEDS: CITALOPRAM 20 MG TAB PO SCH (08:50)
[2018-06-08] MEDS: ALLOPURINOL 100 MG TAB PO SCH (08:51)
[2018-06-08] MEDS: METOPROLOL TARTRATE 25 MG TAB PO SCH ×2 (08:51→20:07)
[2018-06-08] MEDS: POTASSIUM CL 20 MEQ TAB PO SCH ×2 (08:51→20:07)
[2018-06-08] MEDS: valACYclovir 500 MG TAB PO SCH (08:51)
[2018-06-08] MEDS: ALLOPURINOL 300 MG TAB PO SCH (08:51)
[2018-06-08] MEDS: PANTOPRAZOLE SODIUM 40 MG TAB PO SCH (08:51)
[2018-06-08] MEDS: ASPIRIN 81 MG CHEWABLE TAB PO SCH (08:51)
[2018-06-08] MEDS ORDERED: BISACODYL 10 MG SUPP PR SCH (09:00)
[2018-06-08] MEDS: SENNOSIDES/DOCUSATE SODIUM TAB PO SCH ×2 (10:27→20:04)
[2018-06-08] MEDS: POLYETHYLENE GLYCOL 3350 17 GM PKT PO PRN (10:27)
--- NOTE | 2018-06-08 12:24 | ASMTCMCOM ---
CM Note CM Note Notes: Reviewed chart regarding discharge plan of care, pt's progress. Pt is POD #5. Per MD notes, still no BM since surgery - continuing bowel protocol; also continuing diuresis and management of postop afib/aflutter. Pt to likely discharge home independently with family support and outpatient cardiac rehab in 1-2 days. PT/OT have cleared pt for discharge to outpatient rehab. PT recommends home with a front-wheeled walker. CM will continue to follow for any potential needs. Discharge Plan: Home independent with family support Date Signed: 06/08/2018 12:23 PM Electronically Signed By:Kalie Decker RN
[2018-06-08] MEDS: WARFARIN SODIUM 5 MG TAB PO SCH (15:57)
[2018-06-08] MEDS: AMIODARONE HCL 200 MG TAB PO SCH (20:07)
[2018-06-08] MEDS: clonazePAM 0.5 MG TAB PO SCH (20:08)
[2018-06-09] MEDS: HYDROCODONE/APAP 5/325 TAB PO PRN (03:43)
[2018-06-09 04:46] LABS: INR 2.13 (0.83-1.16); PROTIME(PATIENT) 22.8 SEC (12.0-15.0)
--- NOTE | 2018-06-09 07:16 | SOAPPROG ---
SOAP Progress Note Assessment/Plan: POD #6: AVR with #21 Diaz Intuity Elite bioprosthesis Severe s/p AVR with bioprosthesis - Thromboprophylaxis with Coumadin, INR goal 2-3, duration 2 months - Beta-dave for secondary prevention - ASA for Thromboprophylaxis Acute post-op blood loss anemia - Stable without the need for transfusions Postoperative paroxysmal atrial fibrillation/flutter - Currently in rate controlled AF - Continue amiodarone/metoprolol - Antithrombotic prophylaxis as per AVR. DVT prophylaxis - SCDs Disposition - Home today Subjective: Denies pain/SOB. Ready to head home. Objective: Vital Signs Temp Pulse Resp BP Pulse Ox 36.5 C 75 20 131/81 H 92 06/09/18 03:33 06/09/18 03:33 06/09/18 03:33 06/09/18 03:33 06/09/18 03:33 Laboratory Results 06/07/18 06:20 06/09/18 04:00 06/08/18 06/09/18 06/10/18 05:59 05:59 05:59 Intake Total 2280 1225 Output Total 2450 1000 Balance -170 225 PT 22.8 SEC (12.0-15.0) H 06/09/18 04:00 INR 2.13 (0.83-1.16) H 06/09/18 04:00 Physical Exam - Physical Exam General Appearance: WD/WN, alert, no apparent distress EENT: No scleral icterus (R), No scleral icterus (L) Neck: normal inspection Respiratory: No respiratory distress Cardiac/Chest: regular rate, rhythm, irregularly irregular Abdomen: non-tender, soft, No distended Skin: normal color, warm/dry ICD10 Worksheet Patient Problems: Problems Problem Status Onset Postoperative atrial fibrillation Acute S/P aortic valve replacement with bioprosthetic valve Acute ~06/03/18 Severe aortic valve stenosis Acute RUTH on CPAP Chronic Obesity (BMI 30.0-34.9) Chronic
--- NOTE | 2018-06-09 07:18 | PDHOMEO2F ---
Home Oxygen Face to Face Home Orders: I certify that a physician or a nurse practitioner or physician's administrative assistant data entry has had a [id number] encounter with this patient on the date of this order due to the diagnosis listed, which relates to the primary reason the patient requires home oxygen. Alternative treatments have been tried, or considered, and deemed ineffective. It is anticipated that supplemental oxygen will result in improvement with treatment. Home oxygen qualifying diagnosis: hypoxemia, atelectasis, aortic stenosis, fluid overload, SOB SpO2 on room air (%): 86 Frequency of home oxygen needed: continuous Home oxygen liters per minute: 2 Home oxygen delivery device: nasal cannula Concentrator: Yes E-tanks for mobility and back up: Yes If ordering portable O2, is the patient mobile in the home?: Yes I certify that, based on these findings, the home oxygen is medically necessary for this patient for the following length of time. Length of time home oxygen needed: 1 month
[2018-06-09 07:59] VITALS: BP 123/93
--- NOTE | 2018-06-09 08:17 | PDDCSUM ---
Discharge Summary Discharge Summary: DATE OF ADMISSION: 06/03/18 DATE OF DISCHARGE: 06/09/18 DISPOSITION: Home, self-care PRINCIPAL ADMISSION DIAGNOSIS: Severe aortic valve stenosis PRINCIPAL DISCHARGE DIAGNOSES: 1. Status post aortic valve replacement with a bioprosthesis 2. Acute expected blood loss anemia 3. Postoperative paroxysmal atrial fibrillation and flutter HISTORY OF PRESENT ILLNESS: 68 yo male with multiple cardiac risk factors and severe associated with class II-III functional symptoms admitted for elective AVR. PERTINENT PAST MEDICAL HISTORY: CAD with patent proximal LAD stent and nonobstructive proximal RCA disease, dyslipidemia, HTN, obesity (BMI 30-35), gout, prediabetes, George's esophagus, RUTH on CPAP, low testosterone MEDICATIONS ON ADMISSION: Valtrex 500 mg daily, Crestor 40 mg daily, metoprolol tartrate 50 mg BID, Citalopram 20 mg daily, Allopurinol 400 mg daily, Klonopin 0.25 mg HS, Androgel 1.62% topically once daily, herbal supplement once daily ALLERGIES/SENSITIVITIES: NKDA (family hx of penicillin allergy and he would just as soon avoid) CONSULTANTS: Pulmonology/critical care (Shaun) PROCEDURES/IMAGIN/23 (Annette): Aortic valve replacement with a 21 mm Diaz Intuity Elite bovine pericardial bioprosthesis. 06/06 (Allyson): Transthoracic echocardiogram ABBREVIATED HOSPITAL COURSE BY ACTIVE PROBLEM LIST: 1. Symptomatic severe - s/p rapid deployment tissue AVR. Stable postop course. Antithrombotic prophylaxis with Coumadin x 2 months, target INR 2-3. 2. Postoperative paroxysmal atrial fibrillation/flutter - Initial episode POD#2 , promptly responsive to amio. Subsequent PAF/FL and BB escalated as tolerated. [id number] 3-4. Antithrombotic prophylaxis as per AVR. Moderate volume overload actively diuresed. 3. Acute expected blood loss anemia - Stable. No transfusions needed. DISCHARGE CLINICAL INFORMATION: Sternum grossly stable. Sternotomy CDI, sutured. HR 70s. SBP 120s-130s. SpO2 86% RA, correcting to > 91% on 3 lpm. Wt 2.2 kg above admission at 99.8 kilos. Hgb 9.8, HCT 30.2, Plt 147, Na 137, K 3.9, Cr 1.0 Coumadin flow sheet: Date INR mg 06/05 1.26 5 06/06 1.59 5 06/07 2.38 5 06/08 2.23 5 06/09 2.13 5 DISCHARGE MEDICATIONS: As on admission with the following NEW prescriptions: 1. Amiodarone 200 mg BID thru 06/15, then 200 mg daily x 2 weeks, then 100 mg daily up to one more week/out of pills 2. Coumadin 5 mg daily or as directed by INR/anticoagulation clinic 3. Lasix 40 mg daily until back to baseline weight and no swelling 4. Klor-Con 20 meq with Lasix 5. ASA 81 mg daily 6. [place] 5/325 one half to two tabs q 6hrs prn incisional discomfort 7. Oxygen continuously @ 3 lpm or as directed by INR FOLLOW UP APPOINTMENTS: 1. CV surgery: with Dr Bryant at [facility] on 06/16 at 11:00 am. 2. Cardiology: with Dr Ferris at [facility] within 4-6 weeks. Appointment to be established during surgical visit. 3. Anticoagulation clinic: at [facility] on 06/12 at 2:30 pm. FOLLOW UP TESTIN. INR on 06/12 as directed. 2. CXR prior to surgical appointment.
[2018-06-09] MEDS ORDERED: METOPROLOL TARTRATE 50 MG TAB PO SCH (09:00)
[2018-06-09] MEDS ORDERED: FUROSEMIDE 40 MG TAB PO SCH (09:00)
[2018-06-09] MEDS ORDERED: POTASSIUM CL 20 MEQ TAB PO SCH (09:00)
[2018-06-09] MEDS: ASPIRIN 81 MG CHEWABLE TAB PO SCH (10:42)
[2018-06-09] MEDS: ALLOPURINOL 300 MG TAB PO SCH (10:42)
[2018-06-09] MEDS: valACYclovir 500 MG TAB PO SCH (10:42)
[2018-06-09] MEDS: CITALOPRAM 20 MG TAB PO SCH (10:42)
[2018-06-09] MEDS: AMIODARONE HCL 200 MG TAB PO SCH (10:43)
[2018-06-09] MEDS: ALLOPURINOL 100 MG TAB PO SCH (10:43)
[2018-06-09] MEDS: PANTOPRAZOLE SODIUM 40 MG TAB PO SCH (10:43)
--- NOTE | 2018-06-13 07:01 | POSTANESTH ---
Post Anesthetic Evaluation Cardiovascular Status: Normal, Stable Respiratory Status: Normal, Stable Level of Consciousness/Mental Status: Can Participate in Eval Pain Control: Adequate, Prn Tx Ordered Nausea/Vomiting Control: Adequate, Prn Tx Ordered Complications Possibly Related to Anesthesia: None Noted
== END 2018-06-09 13:41 | disposition home or self-care (01) | DRG 220 ==
LOC: F3E 09:25 → F2N 10:31 → F2W 06-04 11:55
PROVIDERS: ADMIT Thoracic Surgery (Cardiothoracic Vascular Surgery); ATTEND Thoracic Surgery (Cardiothoracic Vascular Surgery)
DX: I35.0 Nonrheumatic aortic (valve) stenosis (principal); D62 Acute posthemorrhagic anemia; I48.91 Unspecified atrial fibrillation; I48.92 Unspecified atrial flutter; I25.10 Atherosclerotic heart disease of native coronary artery without angina pectoris; I10 Essential (primary) hypertension; M10.9 Gout, unspecified; G47.33 Obstructive sleep apnea (adult) (pediatric); K21.9 Gastro-esophageal reflux disease without esophagitis; K22.70 Barrett's esophagus without dysplasia; G47.00 Insomnia, unspecified; E66.9 Obesity, unspecified; Z68.32 Body mass index [BMI] 32.0-32.9, adult; Z95.5 Presence of coronary angioplasty implant and graft
CPT/HCPCS: 82435-PO; 82565-PO; 82947-PO; 83605-ER; 84132-PO; 84295-PO; 84520-PO; 85014-ER; 97116-GP; 97162-GP; 97165-GO; 97530-GO; 97535-GO; J0153; J0282; J0690; J1100; J1250; J1265; J1644; J1815; J1885; J2001; J2150; J2250; J2260; J2270; J2370; J2405; J2704; J2720; J2765; J2930; J3010; J3475; J3480; P9041

== ENCOUNTER → 2018-06-16 | Outpatient (CLI) | payer OTHER | LOC: FIMAGING 10:11 | PROVIDERS: ATTEND Thoracic Surgery (Cardiothoracic Vascular Surgery) | DX: J98.11 Atelectasis (principal); I51.7 Cardiomegaly; K44.9 Diaphragmatic hernia without obstruction or gangrene; Z95.2 Presence of prosthetic heart valve ==